=== PATIENT | male | born 1955 | race Caucasian/White ===

== ENCOUNTER 2018-08-06 09:27 | Day surgery (SDC) | payer BC ==
[2018-08-06] MEDS ORDERED: PROPOFOL 500 MG/50 ML EMU IV ONE (10:25)
[2018-08-06] MEDS ORDERED: LIDOCAINE HCL 1% MPF 30 SOL ONE (10:25)
[2018-08-06 11:19] VITALS: BP 107/67; PULSE 61; RESP 12; TEMP 97.1; O2SAT 94
== END 2018-08-06 11:30 | disposition home or self-care (01) ==
LOC: SURG 09:27
PROVIDERS: ATTEND Surgery
DX: Z12.11 Encounter for screening for malignant neoplasm of colon (principal); Z80.0 Family history of malignant neoplasm of digestive organs; K57.30 Diverticulosis of large intestine without perforation or abscess without bleeding; D12.3 Benign neoplasm of transverse colon
CPT/HCPCS: 99001; J2001; J2704